=== PATIENT | female | born 1980 | race Caucasian/White ===

== ENCOUNTER 2024-02-11 03:20 | Emergency (ER) | payer BC ==
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
[2024-02-11] MEDS: SODIUM CHLORIDE 0.9% 1,000 ML IV ONE ×2 (03:44→05:40)
[2024-02-11] MEDS: LORazepam 2 MG/ML INJ IV STA (03:45)
[2024-02-11 04:10] LABS: ALT 16 U/L (4-34); AST 24 U/L (14-36); African American GFR (CKD) >90 (>60 ml/min/1.73 sqM); Albumin 4.2 g/dL (3.5-5.0); Alkaline Phosphatase 46 U/L (38-126); Amylase 74 U/L (30-110); Anion Gap 9 mmol/L; Blood Urea Nitrogen 12 mg/dL (7-17); Calcium 9.5 mg/dL (8.4-10.2); Carbon Dioxide 25 mmol/L (22-30); Chloride 109 mmol/L (98-107); Glucose 106 mg/dL (74-99); Lipase 99 U/L (23-300); Magnesium 2.1 mg/dL (1.6-2.3); Non-African American GFR(CKD) >90 (>60 ml/min/1.73 sqM); Potassium 4.6 mmol/L (3.5-5.1); Sodium 143 mmol/L (137-145); Total Bilirubin 0.3 mg/dL (0.2-1.3); Total Protein 7.1 g/dL (6.3-8.2)
[2024-02-11 04:28] LABS: Basophils % (A) 0 %; Eosinophils # (A) 0.1 k/uL (0-0.7); Eosinophils % (A) 1 %; HCT 42.7 % (34.0-46.0); Lymphocytes # (A) 1.5 k/uL (1.0-4.8); Lymphocytes % (A) 14 %; MCH 29.2 pg (25.0-35.0); MCHC 32.8 g/dL (31.0-37.0); MCV 89.2 fL (80.0-100.0); Mean Platelet Volume 7.9; Monocytes # (A) 0.5 k/uL (0-1.0); Monocytes % (A) 5 %; Neutrophils % (A) 78 %; Platelet Count 255 k/uL (150-450); Prothrombin Time 10.8 sec (10.0-12.5); RBC 4.79 m/uL (3.80-5.40); WBC 10.2 k/uL (3.8-10.6)
[2024-02-11 04:36] LABS: Partial Thromboplastin Time 21.8 sec (22.0-30.0)
--- NOTE | 2024-02-11 06:25 | XR ---
EXAMINATION TYPE: XR chest 2V DATE OF EXAM: 02/11/2024 4:10 AM CLINICAL INDICATION:Female, 43 years old with history of Chest Pain; COMPARISON: Chest radiographs from 02/11/2024. TECHNIQUE: XR chest 2V Frontal and lateral views of the chest. FINDINGS: Lungs/Pleura: Subtle airspace opacities in the right lung base. There is no evidence of pleural effus ion,Left focal consolidation, or pneumothorax. Pulmonary vascularity: Unremarkable. Heart/mediastinum: Cardiomediastinal silhouette is unremarkable. Musculoskeletal: No acute osseous pathology. IMPRESSION: Subtle airspace opacities right lung base correlate for pneumonia.
[2024-02-11 07:16] VITALS: BP 111/67; PULSE 102; RESP 16; TEMP 98.2
== END 2024-02-11 07:37 | disposition home or self-care (01) ==
LOC: EC 03:20
DX: R07.89 Other chest pain (principal); R00.0 Tachycardia, unspecified
CPT/HCPCS: 99285; 96374; 96361 ×4; 36415; 93005; 85379; 80053; 82150; 83605; 83690; 83735; 84443; 84484; 85025; 85610; 85730; 71046; J2060